=== PATIENT | male | born 1970 | race Caucasian/White ===

== ENCOUNTER 2017-01-02 15:35 | Emergency (ER) | payer BC ==
[~2017-01-02] VITALS: Ht 188 cm; Wt 81.6 kg
[2017-01-02] MEDS ORDERED: MORPHINE SULFATE 4 MG/ML DISP.SYRIN. ONE (15:55)
[2017-01-02] MEDS ORDERED: MORPHINE SULFATE 4 MG/ML DISP.SYRIN. IV/SQ PRN (16:00)
[2017-01-02] MEDS ORDERED: IV NORMAL SALINE 1000ML BAG 1,000 ML IV SCH (16:00)
[2017-01-02] MEDS ORDERED: FENTANYL PF 100 MCG/2 ML VIAL. ONE (16:02)
[2017-01-02] MEDS ORDERED: FENTANYL PF 100 MCG/2 ML VIAL. IV ONE ×3 (16:15→17:45)
[2017-01-02 16:21] LABS: BASO # 0.1 x10^3/uL (0.0-0.2); BASO % 1 % (0-3); EOS % 2 % (0-3); HEMATOCRIT 44.5 % (39.0-53.0); HEMOGLOBIN 14.9 g/dL (13.0-17.5); LYMPH # 2.6 x10^3/uL (1.0-4.8); LYMPH % 24 % (24-48); MEAN CORPUSCULAR HEMOGLOBIN 31 pg (25-35); MEAN CORPUSCULAR HGB CONC 33 g/dL (31-37); MEAN CORPUSCULAR VOLUME 93 fL (79-100); MONO % 10 % (0-9); NEUT % 64 % (31-73); PLATELET COUNT 240 x10^3/uL (140-400); RED CELL DISTRIBUTION WIDTH 13.5 % (11.5-14.5); WHITE BLOOD COUNT 11.2 x10^3/uL (4.0-11.0)
[2017-01-02 16:23] LABS: CALCIUM 9.6 mg/dL (8.5-10.1); CREATININE 0.9 mg/dL (0.7-1.3); GFR 90.8; POTASSIUM 3.1 mmol/L (3.5-5.1)
[2017-01-02 16:24] LABS: PROTHROMBIN TIME PATIENT 12.4 SEC (11.7-14.0)
--- NOTE | 2017-01-02 16:29 | RAD ---
Left knee, 3 views, 01/02/2017: History: Trauma, laceration No fracture or dislocation is identified. No significant arthritic change is seen. There is a soft tissue defect containing air in the suprapatellar region. No radiopaque foreign body is seen in this region. IMPRESSION: No acute bony abnormality is detected.
--- NOTE | 2017-01-02 17:48 | PHYS DOC ---
Past Medical History Past Medical History: No Pertinent History Past Surgical History: No Surgical History Smoking: Cigarettes Alcohol Use: Occasionally Additional Information: one beer daily Drug Use: None Adult General Chief Complaint Chief Complaint: LOWEREXTREMITY INJURY HPI HPI Patient is a 46 year old male who presents with left knee pain and laceration after using a chainsaw. This chainsaw hit his left leg just above his knee. He has severe pain that is constant and worse with range of motion. States he cannot extend his knee. He feels a "balling up sensation" in his thigh when he tries to use his quadriceps muscles. He denies numbness or tingling or other injury. Review of Systems Review of Systems Constitutional: Denies fever or chills [] Eyes: Denies change in visual acuity, redness, or eye pain [] HENT: Denies nasal congestion or sore throat [] Respiratory: Denies cough or shortness of breath [] Cardiovascular: No additional information not addressed in HPI [] GI: Denies abdominal pain, nausea, vomiting, bloody stools or diarrhea [] : Denies dysuria or hematuria [] Musculoskeletal: Denies back pain [] Integument: Denies rash or skin lesions [] Neurologic: Denies headache, focal weakness or sensory changes [] Endocrine: Denies polyuria or polydipsia [] Current Medications Current Medications Current Medications Medications (Trade) Dose Ordered Sig/Clotilde Start Time Stop Time Status Last Admin Dose Admin Cefazolin Sodium/ Sodium Chloride (Ancef/Iv Sodium Chloride 0.9% 50ml) 50 ml @ 100 mls/hr 1X ONCE 01/02/17 18:30 01/02/17 18:59 DC 01/02/17 18:21 100 MLS/HR Fentanyl Citrate (Fentanyl 2ml Vial) 100 mcg PRN Q30MIN PRN 01/02/17 18:45 01/02/17 19:11 DC 01/02/17 18:34 100 MCG Fentanyl Citrate 100 mcg 100 mcg 1X ONCE 01/02/17 17:45 01/02/17 17:46 DC 01/02/17 17:39 100 MCG Morphine Sulfate 5 mg 1X ONCE 01/02/17 20:15 01/02/17 20:16 DC Morphine Sulfate 4 mg 4 mg PRN Q15MIN PRN 01/02/17 16:00 01/03/17 15:59 Sodium Chloride (Iv Sodium Chloride 0.9% 1000ml Bag) 1,000 ml @ 1,000 mls/hr Q1H 01/02/17 16:00 01/02/17 16:59 DC 01/02/17 15:59 1,000 MLS/HR Allergies Allergies Allergies Coded Allergies Type Severity Reaction Last Updated Verified No Known Drug Allergies 01/02/17 No Physical Exam Physical Exam Constitutional: Well developed, well nourished, no acute distress, non-toxic appearance. [] HENT: Normocephalic, atraumatic, bilateral external ears normal, oropharynx moist, nose normal. [] Eyes: PERRLA, EOMI. [] Neck: Normal range of motion, supple. [] Cardiovascular:Heart rate regular rhythm [] Lungs & Thorax: Bilateral breath sounds clear to auscultation [] Abdomen: Bowel sounds normal, soft, no tenderness. [] Skin: Warm, dry, no erythema, no rash. [] Back: Normal ROM. [] Extremities: LLE with large approx 10cm laceration perpendicular and proximal to patella, to deep tissues, with clear synovial fluid expressible, no active bleeding, no obvious bony exposure; Able to flex/ex/IR/ER hip, ankle df/pf, toes df/pf; Cannot extend knee, but can flex; sensation intact to light touch; good dp and pt pulses equal bilaterally Neurologic: Alert and oriented X 3, normal motor function, normal sensory function, no focal deficits noted. [] Psychologic: Affect normal, judgement normal, mood normal. [] Current Patient Data Vital Signs Vital Signs Date Time Temp Pulse Resp B/P Pulse Ox O2 Delivery O2 Flow Rate FiO2 01/02/17 20:12 15 100 Room Air 01/02/17 18:58 60 133/74 01/02/17 15:35 98.0 98.0 Lab Values Laboratory Tests Test 01/02/17 16:00 White Blood Count 11.2x10^3/uL (4.0-11.0) H Red Blood Count 4.80x10^6/uL (4.30-5.70) Hemoglobin 14.9g/dL (13.0-17.5) Hematocrit 44.5% (39.0-53.0) Mean Corpuscular Volume 93fL (79-100) Mean Corpuscular Hemoglobin 31pg (25-35) Mean Corpuscular Hemoglobin Concent 33g/dL (31-37) Red Cell Distribution Width 13.5% (11.5-14.5) Platelet Count 240x10^3/uL (140-400) Neutrophils (%) (Auto) 64% (31-73) Lymphocytes (%) (Auto) 24% (24-48) Monocytes (%) (Auto) 10% (0-9) H Eosinophils (%) (Auto) 2% (0-3) Basophils (%) (Auto) 1% (0-3) Neutrophils # (Auto) 7.2x10^3uL (1.8-7.7) Lymphocytes # (Auto) 2.6x10^3/uL (1.0-4.8) Monocytes # (Auto) 1.1x10^3/uL (0.0-1.1) Eosinophils # (Auto) 0.2x10^3/uL (0.0-0.7) Basophils # (Auto) 0.1x10^3/uL (0.0-0.2) Prothrombin Time 12.4SEC (11.7-14.0) Prothrombin Time INR 1.0 (0.8-1.1) PTT 26SEC (24-38) Sodium Level 124mmol/L (136-145) L Potassium Level 3.1mmol/L (3.5-5.1) L Chloride Level 101mmol/L (98-107) Carbon Dioxide Level 29mmol/L (21-32) Anion Gap -6 (6-14) L Blood Urea Nitrogen 17mg/dL (8-26) Creatinine 0.9mg/dL (0.7-1.3) Estimated GFR (Cockcroft-Gault) 90.8 Glucose Level 101mg/dL (70-99) H Calcium Level 9.6mg/dL (8.5-10.1) Laboratory Tests 01/02/17 16:00 Laboratory Tests 01/02/17 16:00 Radiology/Procedures Radiology/Procedures Left knee x-ray as interpreted by me with no obvious bony involvement, but has obvious soft tissue injury Course & Med Decision Making Course & Med Decision Making Pertinent Labs and Imaging studies reviewed. (See chart for details) Concern for disruption of extensor mechanism and open joint. IV Ancef administered. Discussed case with Dr. Gray, orthopedics, who recommends transfer to [facility] for higher level of care. Discussed with [facility] transfer line; Darion, triage nurse, and Dr. Lao, orthopedics, who have accepted patient transfer to the ED. Family agrees with transfer plan and transfer consent signed. Dragon Disclaimer Dragon Disclaimer This electronic medical record was generated, in whole or in part, using a voice recognition dictation system. Departure Departure Impression: Primary Impression: Laceration of knee, left, with tendon involvement Disposition: ADMITTED INPATIENT Condition: STABLE Referrals: NO PCP (PCP) Problem Qualifiers Primary Impression: Laceration of knee, left, with tendon involvement Encounter type: initial encounter Qualified Code: S81.012A - Laceration without foreign body, left knee, initial encounter Willie HOGAN MD Jan 02, 2017 17:48
[2017-01-02] MEDS ORDERED: CEFAZOLIN SODIUM 1 GM in IV NORMAL SALINE 50ML 50 ML IV ONE (18:30)
[2017-01-02] MEDS ORDERED: FENTANYL PF 100 MCG/2 ML VIAL. IV PRN (18:45)
[2017-01-02] MEDS ORDERED: MORPHINE SULFATE 10 MG/ML VIAL. ONE (19:12)
[2017-01-02] MEDS: MORPHINE SULFATE 10 MG/ML VIAL. IV PRN ×3 (19:15→21:00)
[2017-01-02] MEDS ORDERED: MORPHINE SULFATE 10 MG/ML VIAL. IV ONE ×2 (20:00→20:15)
[2017-01-02 20:30] VITALS: BP 131/84
== END 2017-01-02 21:13 | disposition short-term general hospital (02) ==
LOC: ER 15:35
DX: S81.012A Laceration without foreign body, left knee, initial encounter (principal); F17.210 Nicotine dependence, cigarettes, uncomplicated; W29.3XXA Contact with powered garden and outdoor hand tools and machinery, initial encounter; Y93.89 Activity, other specified; Y99.8 Other external cause status; Y92.89 Other specified places as the place of occurrence of the external cause
CPT/HCPCS: 29505; 36415; 73562; 80048; 85027; 85610; 85730; 86850; 86900; 86901; 96361; 96365; 96375; 96376; 99285; J0690; J2270; J3010; J7030

== ENCOUNTER → 2018-12-01 | Outpatient (CLI) | payer BC ==
--- NOTE | 2018-12-01 15:20 | RAD ---
EXAM: Abdomen sonogram. HISTORY: Pain. TECHNIQUE: Sonographic imaging of the abdomen was performed. COMPARISON: None. FINDINGS: The liver is upper normal in size. There is hepatic steatosis. No focal hepatic lesion is seen. The common bile duct is normal in caliber. The gallbladder is unremarkable. The pancreas is partially obscured due to bowel gas. The aorta is normal in caliber. The inferior vena cava is patent. The right kidney is unremarkable. IMPRESSION: 1. Suspected hepatic steatosis. 2. Partially obscured pancreas due to bowel gas. Electronically signed by: Sosa Whittington MD (12/01/2018 3:16 PM) [email or web address]
== END | disposition home or self-care (01) ==
LOC: US 13:29
PROVIDERS: ATTEND Family Medicine
DX: R10.11 Right upper quadrant pain (principal)
CPT/HCPCS: 76705

== ENCOUNTER → 2022-01-10 | Outpatient (CLI) | payer BC ==
--- NOTE | 2022-01-10 16:02 | RAD ---
PA and lateral views of the chest. Comparison: None. Indication: COPD Findings: The heart size is normal. No pneumothorax or effusion. No air space or interstitial disease. The bon y structures are intact. Impression: 1. No acute cardiopulmonary process. Electronically signed by: Rudy Schultz MD (01/10/2022 3:59 PM) [facility]
== END ==
LOC: RAD 15:36
PROVIDERS: ATTEND Internal Medicine Critical Care Medicine
DX: J44.9 Chronic obstructive pulmonary disease, unspecified (principal)
CPT/HCPCS: 71046

== ENCOUNTER → 2022-02-23 | Outpatient (CLI) | payer BC ==
--- NOTE | 2022-02-23 14:09 | RAD ---
CT of the chest without contrast: Clinical History: Reason: ILD / Spl. Instructions: / History: . Axial helical images of the chest were obtained without contrast. FINDINGS: The lungs are hyperinflated. There is mild emphysematous changes. There is no significant subpleural changes. There is no bronchiectasis. There is no significant coronary artery calcifications visualize d. The lungs and pleural margins are clear. There is no mediastinal or hilar lymphadenopathy. Impression: No significant findings. No evidence of significant interstitial lung disease. End of impression PQRS Compliance Statement: One or more of the following individualized dose reduction techniques were utilized for this examinat ion: 1. Automated exposure control 2. Adjustment of the mA and/or kV according to patient size 3. Use of iterative reconstruction technique Electronically signed by: Jw Buckley III, MD (02/23/2022 2:07 PM) [facility]
== END ==
LOC: CT 08:48
PROVIDERS: ATTEND Internal Medicine Critical Care Medicine
DX: J43.9 Emphysema, unspecified (principal); J84.170 Interstitial lung disease with progressive fibrotic phenotype in diseases classified elsewhere
CPT/HCPCS: 71250